=== PATIENT | female | born 1960 | race Caucasian/White ===

== ENCOUNTER 2018-10-31 09:34 | Day surgery (SDC) | payer MEDICARE, MEDICAID ==
[~2018-10-31 09:34] MED LIST: Acetaminophen 500 MG TAB PO SCH; RITUXIMAB IVPB SCH; SODIUM CHLORIDE 0.9% IVPB SCH; diphenhydrAMINE 25 MG in Sodium Chloride 0.9% 50 ML IVPB SCH
[2018-10-31] MEDS ORDERED: SODIUM CHLORIDE 0.9% IVPB SCH (09:45)
[2018-10-31] MEDS ORDERED: RITUXIMAB IVPB SCH (09:45)
[2018-10-31] MEDS ORDERED: Sodium Chloride 0.9% 30 ML ONE (10:01)
[2018-10-31 15:30] VITALS: BP 124/74; TEMP 97.7
== END 2018-10-31 15:40 | disposition home or self-care (01) ==
LOC: ONC/OP 09:34
PROVIDERS: ATTEND Internal Medicine Hematology & Oncology
DX: D69.3 Immune thrombocytopenic purpura (principal)
CPT/HCPCS: 96375; 96413; 96415; J1200; J7050; J9310; J9312

== ENCOUNTER 2018-11-11 13:38 | Day surgery (SDC) | payer MEDICARE, MEDICAID ==
[2018-11-11 14:37] VITALS: BP 147/80; TEMP 98.1
== END 2018-11-11 17:27 | disposition home or self-care (01) ==
LOC: ONC/OP 13:38
PROVIDERS: ATTEND Internal Medicine Hematology & Oncology
DX: Z51.12 Encounter for antineoplastic immunotherapy (principal); D69.3 Immune thrombocytopenic purpura
CPT/HCPCS: 96375; 96413; J1200; J7050; J9310; J9312

== ENCOUNTER 2018-11-20 10:38 | Day surgery (SDC) | payer MEDICARE, MEDICAID ==
[2018-11-20] MEDS ORDERED: Dexamethasone Sod Phosphate 40 MG in Sodium Chloride 0.9% 50 ML IVPB SCH (11:00)
[2018-11-20] MEDS ORDERED: Sodium Chloride 0.9% 20 ML ONE (11:02)
[2018-11-20 11:17] VITALS: BP 97/52; TEMP 99.4
== END 2018-11-20 14:28 | disposition home or self-care (01) ==
LOC: ONC/OP 10:38
PROVIDERS: ATTEND Internal Medicine Hematology & Oncology
DX: Z51.12 Encounter for antineoplastic immunotherapy (principal); D69.3 Immune thrombocytopenic purpura
CPT/HCPCS: 96375; 96413; 96415; J1100; J1200; J7050; J9310; J9312

== ENCOUNTER 2018-11-26 10:43 | Day surgery (SDC) | payer MEDICARE, MEDICAID ==
[~2018-11-26 10:43] MED LIST changes: +Dexamethasone Sod Phosphate 40 MG in Sodium Chloride 0.9% 50 ML IVPB SCH
== END 2018-11-26 11:15 ==
LOC: ONC/OP 10:43
PROVIDERS: ATTEND Internal Medicine Hematology & Oncology
DX: D69.3 Immune thrombocytopenic purpura (principal)
CPT/HCPCS: J1100; J1200; J7050; J9310; J9312

== ENCOUNTER 2018-11-29 09:58 | Day surgery (SDC) | payer MEDICARE, MEDICAID ==
[~2018-11-29 09:58] MED LIST changes: +Dexamethasone 40 MG in Sodium Chloride 0.9% 50 ML IVPB SCH; -Dexamethasone Sod Phosphate 40 MG in Sodium Chloride 0.9% 50 ML IVPB SCH
[2018-11-29 10:40] VITALS: BP 123/58; TEMP 98.2
== END 2018-11-29 13:58 | disposition home or self-care (01) ==
LOC: ONC/OP 09:58
PROVIDERS: ATTEND Internal Medicine Hematology & Oncology
DX: D69.3 Immune thrombocytopenic purpura (principal)
CPT/HCPCS: 96375; 96413; 96415; J1100; J1200; J7050; J9310; J9312